=== PATIENT | male | born 1960 | race Caucasian/White ===

== ENCOUNTER 2016-07-21 14:18 | Emergency (ER) | payer MEDICAID, MEDICARE ==
[2016-07-21] MEDS ORDERED: SODIUM CHLORIDE 0.9% 10 ML FLUSH FLUSH PRN (14:35)
[2016-07-21] MEDS ORDERED: Pharmacy Review for Metformin - IV Contrast Given SCH (15:00)
[2016-07-21] MEDS: NS 1,000 ML IV SCH ×2 (15:10→18:00)
--- NOTE | 2016-07-21 15:14 | EDPRACDOC ---
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 PT STATES THAT TODAY HE "JUST STARTED NOT TO FEEL VERY WELL" AND CALLED OUT TO THE NURSES. ON NURSES ARRIVAL, IT WAS STATED THAT PT WAS BLEEDING PROFUSELY AROUND THE BUTTOCK AREA. PT CURRENTLY HYPOTENSIVE, DIAPHORETIC AND PALE, BUT ALERT. Bleeding Duration: Reports: Since Onset Bleeding Description: Reports: Spontaneous Amount of Blood: Reports: Cups <Martha Russell - Last Filed: 07/21/16 16:04> <Laya Weiner - Last Filed: 07/21/16 23:37> <Michael Carbone - Last Filed: 07/22/16 02:23> - General Information Stated Complaint: PENILE BLEEDING Time Seen by Provider: 07/21/16 14:27 Home Medications: Home Medications Albuterol Sulfate [Proair Respiclick] 1 puff INH Q12H PRN 04/14/16 Aspirin (Enteric Coated) [Ecotrin] 81 mg PO DAILY 04/14/16 Atorvastatin Calcium [Lipitor] 40 mg PO DAILY 04/14/16 Baclofen 30 mg PO QID 04/14/16 Calcium Carbonate [Calcium] 500 mg PO TID 04/14/16 Dextrose [Glucose] 4 gm PO DAILY PRN 04/14/16 Diazepam [Valium] 5 mg PO Q8H PRN 04/14/16 Duloxetine HCl [Cymbalta] 20 mg PO BID 04/14/16 Ferrous Sulfate [Iron] 325 mg PO TID 04/14/16 Fluticasone/Vilanterol [Breo Ellipta 100-25 Mcg INH] 1 puff INH DAILY 04/14/16 Gabapentin 600 mg PO BID 04/14/16 Gabapentin [Neurontin] 900 mg PO QHS 04/14/16 Metformin HCl 500 mg PO BID 04/14/16 Metoprolol Tartrate 12.5 mg PO BID 04/14/16 Morphine Sulfate [Ms Contin] 15 mg PO BID 04/14/16 Mv,Minerals/FA/Lycopene/Ginkgo [One Daily Men's 50+ Tablet] 1 tab PO DAILY 04/14 Naphazo HCl/Hpm/Ps 80/Zn Sulf [Clear Eyes Complete Eye Drops] 1 drop OU DAILY PRN 04/14/16 Oxycodone HCl/Acetaminophen [Percocet 5-325 mg Tablet] 1 tab PO Q6H PRN Polyethylene Glycol 3350 [Miralax] 17 gm PO DAILY 04/14/16 Sennosides/Docusate Sodium [Sennosides-Docusate Sodium Tab] 2 tab PO BID Vitamin B Complex 1 tab PO DAILY 04/14/16 Allergies/Adverse Reactions: Allergies Allergy/AdvReac Type Severity Reaction Status Date / Time No Known Allergies Allergy Verified 04/14/16 12:26 ED Past Medical History - History Reviewed Yes Nurses notes reviewed and agree except as marked - Patient Medical History Psychological History: Denies: Depression Surgical History: Reports: Other - Social Medical History Smoking Status: Heavy tobacco smoker (5 or more cigarettes/day or daily pipe/ cigar) <Martha Russell - Last Filed: 07/21/16 16:04> EDM Review of Systems - Review of Systems ROS Negative Except as Marked: Yes All systems reviewed and were negative except as marked ROS Unobtainable: Yes Hx Limited due to age/level of understanding of patient Constitutional: No Symptoms Reported Respiratory: No Symptoms Reported Cardiovascular: No Symptoms Reported Gastrointestinal: No Symptoms Reported Neurological: Weakness Integumentary: Wound <Martha Russell - Last Filed: 07/21/16 16:04> - Physical Exam Last recorded Vital Signs: Oxygen Pulse Oxygen Saturation O2 Device Oxygen Flow Rate Fraction of Inspired Oxygen ( FIO2) <Félix De - Last Filed: 07/21/16 15:49> - Physical Exam Constitutional: Alert, Distress Oriented to: Time, Person, Place Last recorded Vital Signs: Oxygen Pulse Oxygen Saturation O2 Device Oxygen Flow Rate Fraction of Inspired Oxygen ( FIO2) - HEENT Head: Normal Eye Exam: Pale Conjunctiva Neck: Normal, Denies Pain, Midline - Respiratory/Cardiovascular Respiratory: Diminished, Rhonchi, Tachypnea Cardiovascular: Tachycardia - GI Auscultation: Normal Palpation: Normal Tenderness: Non tender - Bladder: Other (NOTED SUPRAPUBIC CATHETER) Male Genitalia: Bilateral: Other (SKIN BREAKDOWN TO PENIS) Scrotum: Bilateral: Other (NOTED SKIN BREAKDOWN AROUND SCROTUM) - Musculoskeletal Back: Other (NOTED SEVERE DC ULCER TO SACRAL AREAS, COVERING ENTIRE BUTTOCK AREA ; RECTUM IS CLOSED SURGICALLY; AREA OOZING BLOOD; DEEP TO POSTERIOR PELVIS) Extremities: Other (RECENT NOTED AKA; ROXANNA STILL PRESENT W/OUT INFECTION) - Integumentary Skin: Normal Lymphatics: Normal - Neurologic Mood Description: Normal Thought: Coherent Perception: Normal <Martha Russell - Last Filed: 07/21/16 16:04> - Physical Exam Last recorded Vital Signs: Last Vital Signs Temp Pulse 86 07/21/16 15:37 Resp 20 07/21/16 15:37 BP 72/50 L 07/21/16 15:37 Pulse Ox 96 07/21/16 15:37 Oxygen Pulse Oxygen Saturation 96 O2 Device Nasal Cannula Oxygen Flow Rate 2 Fraction of Inspired Oxygen ( FIO2) <Laya Weiner - Last Filed: 07/21/16 23:37> - Physical Exam Last recorded Vital Signs: Last Vital Signs Temp 97.5 F 07/22/16 01:28 Pulse 84 07/22/16 01:47 Resp 18 07/22/16 01:47 BP 107/70 07/22/16 01:47 Pulse Ox 96 07/22/16 01:47 Oxygen Pulse Oxygen Saturation 96 O2 Device Nasal Cannula Oxygen Flow Rate 2 Fraction of Inspired Oxygen ( FIO2) <Michael Carbone - Last Filed: 07/22/16 02:23> ED Procedures - Central Line Informed of risks, benefits and alternatives described.: No Indication: Hypotension, No peripheral access Line Procedure: Chlorahexadine, Sterile drapes applied, Sterile dressing applied Equipment used during procedure: Hat and Mask, Sterile Gown, Sterile Gloves Line Lumen: triple (ULTRASOUND GUIDED) Central Line Postion: internal jugular (R) Anesthesia: Lidocaine Line Position approached and secured by standard fashion: sutured, good blood return, position confirmed w/ CXR Complications: none Post Central Line placement CXR: Ordered <Félix De - Last Filed: 07/21/16 15:49> - Results 07/21/16 15:08 07/21/16 15:08 WBC 19.4 xk/uL (3.8-10.8) H 07/21/16 15:08 RBC 3.93 xM/uL (4.70-6.10) L 07/21/16 15:08 Hgb 9.9 g/dL (14.0-18.0) L 07/21/16 15:08 Hct 31.5 % (42-52) L 07/21/16 15:08 MCV 80 fL (80-94) 07/21/16 15:08 MCH 25.1 pg (27-32) L 07/21/16 15:08 MCHC 31.3 g/dl (33-36) L 07/21/16 15:08 RDW 20.3 % (11.5-14.5) H 07/21/16 15:08 Plt Count 348 xk/uL (130-400) 07/21/16 15:08 MPV 8.3 fL (7.4-10.4) 07/21/16 15:08 Neut % (Auto) 82.6 % (45-76) H 07/21/16 15:08 Lymph % (Auto) 10.3 % (17-44) L 07/21/16 15:08 Walton % (Auto) 6.1 % (3-10) 07/21/16 15:08 Eos % (Auto) 0.5 % (0-5) 07/21/16 15:08 Baso % (Auto) 0.5 % (0-2) 07/21/16 15:08 Absolute Neuts (auto) 15.91 xk/uL (1.7-8.2) H 07/21/16 15:08 Absolute Lymphs (auto) 1.94 xk/uL (0.65-4.75) 07/21/16 15:08 Puncture Site Right radial 07/21/16 15:20 pH 7.500 pH UNITS (7.35-7.45) H 07/21/16 15:20 pCO2 45.0 mmHg (35-45) 07/21/16 15:20 pO2 59.0 mmHg (80-100) L 07/21/16 15:20 HCO3 35.1 MMOL/L (22-26) H 07/21/16 15:20 Total CO2 36.5 MMOL/L (23-27) H 07/21/16 15:20 Base Excess 10.5 (+/- 2) H 07/21/16 15:20 FiO2 % 2 lpm 07/21/16 15:20 Specimen Drawn By [facility] 07/21/16 15:20 Crossmatch See Detail 07/21/16 15:08 Lab Results 07/21/16 07/21/16 07/21/16 15:20 15:08 15:08 WBC 19.4 H RBC 3.93 L Hgb 9.9 L Hct 31.5 L MCV 80 MCH 25.1 L MCHC 31.3 L RDW 20.3 H Plt Count 348 MPV 8.3 Neut % (Auto) 82.6 H Lymph % (Auto) 10.3 L Walton % (Auto) 6.1 Eos % (Auto) 0.5 Baso % (Auto) 0.5 Absolute Neuts (auto) 15.91 H Absolute Lymphs (auto) 1.94 Puncture Site Right radial pH 7.500 H pCO2 45.0 pO2 59.0 L HCO3 35.1 H Total CO2 36.5 H Base Excess 10.5 H FiO2 % 2 lpm Specimen Drawn By [facility] Crossmatch See Detail <Félix De - Last Filed: 07/21/16 15:49> - Results 07/21/16 15:08 07/21/16 15:08 Crossmatch See Detail 07/21/16 14:36 Lab Results 07/21/16 14:36 Crossmatch See Detail - EKG EKG #1 EKG Time: 14:41 -: Yes EKG interpreted by me Rate: bpm: 91 [place]: Normal Rhythm: NSR Block: None Hypertrophy: None ST: Normal <Martha Russell - Last Filed: 07/21/16 16:04> - Re-evaluation Re-evaluation 3 Re-evaluation Time: 17:41 LEVOPHED DRIP GOING, HAS HAD 2 L OF NORMAL SALINE. BLOOD PRESSURE HAS BEEN RANGING BETWEEN 87 AND 97 SYSTOLIC. PATIENT IS WARM AND MENTATING ACTUALLY VERY WELL. NO CURRENT BLEEDING FROM HIS WOUND. AT THIS TIME. THE BENEFITS OF TRANSFER TO A HIGHER LEVEL CARE OUTWEIGH ANTICIPATED WRIST DURING TRANSPORT. Re-evaluation 1 Re-evaluation Time: 16:00 (I ASSUMED CARE FROM DR. DE, PATIENT HAS BEEN CENTRAL LINE AND IV FLUIDS PRESSORS ANTIBIOTICS HAVE BEEN STARTED.) RESULTS REVIEWED, FROM TODAY, WELL HIS RECENT DISCHARGE INFO FROM [facility]. AT THIS TIME. IT IS BEST THAT HE IS CARE FOR THE CRITICAL CARE SETTING SINCE [place] IS FAMILIAR WITH THE PATIENT HAS AND HAS PROVIDED OPERATIVE SERVICES WILL RECOMMEND TRANSFER THERE. Re-evaluation 4 Re-evaluation Time: 21:17 No changes in clinical status or new information from previous documentation. Vital Signs: Temp:97.1 F HR: 76 BP: 95/66 RR: 16 Pox: 96%. Continue with current plan. WARM AND WELL PERFUSED. AWAITING BED ASSIGNMENT AT [facility]. PT STILL STABLE FOR TRANSPORT. Re-evaluation 5 Re-evaluation Time: 23:37 No changes in clinical status or new information from previous documentation. Vital Signs: Temp:97.1 F HR: 72 BP: 115/75 RR: 18 Pox: 97%. Continue with current plan. DOING WELL HAS EATEN A [place] AND [place] [facility] STABLE FOR TRANSFER AT THIS TIME. CARE WILL BE ENDORSED TO DR. BRIANDA MATSON TRANSPORTATION TO [place] PENDING AT THIS TIME. - Results 07/21/16 15:08 07/21/16 15:08 WBC 19.4 xk/uL (3.8-10.8) H 07/21/16 15:08 RBC 3.93 xM/uL (4.70-6.10) L 07/21/16 15:08 Hgb 9.9 g/dL (14.0-18.0) L 07/21/16 15:08 Hct 31.5 % (42-52) L 07/21/16 15:08 MCV 80 fL (80-94) 07/21/16 15:08 MCH 25.1 pg (27-32) L 07/21/16 15:08 MCHC 31.3 g/dl (33-36) L 07/21/16 15:08 RDW 20.3 % (11.5-14.5) H 07/21/16 15:08 Plt Count 348 xk/uL (130-400) 07/21/16 15:08 MPV 8.3 fL (7.4-10.4) 07/21/16 15:08 Neut % (Auto) 82.6 % (45-76) H 07/21/16 15:08 Lymph % (Auto) 10.3 % (17-44) L 07/21/16 15:08 Walton % (Auto) 6.1 % (3-10) 07/21/16 15:08 Eos % (Auto) 0.5 % (0-5) 07/21/16 15:08 Baso % (Auto) 0.5 % (0-2) 07/21/16 15:08 Absolute Neuts (auto) 15.91 xk/uL (1.7-8.2) H 07/21/16 15:08 Absolute Lymphs (auto) 1.94 xk/uL (0.65-4.75) 07/21/16 15:08 Puncture Site Right radial 07/21/16 15:20 pH 7.500 pH UNITS (7.35-7.45) H 07/21/16 15:20 pCO2 45.0 mmHg (35-45) 07/21/16 15:20 pO2 59.0 mmHg (80-100) L 07/21/16 15:20 HCO3 35.1 MMOL/L (22-26) H 07/21/16 15:20 Total CO2 36.5 MMOL/L (23-27) H 07/21/16 15:20 Base Excess 10.5 (+/- 2) H 07/21/16 15:20 FiO2 % 2 lpm 07/21/16 15:20 Specimen Drawn By [facility] 07/21/16 15:20 Sodium 136 mEq/L (137-146) L 07/21/16 15:08 Potassium 3.6 mEq/L (3.5-5.1) 07/21/16 15:08 Chloride 96 mEq/L (98-107) L 07/21/16 15:08 Carbon Dioxide 34 mMOL/L (22-33) H 07/21/16 15:08 Anion Gap 10 mEq/L (8-16) 07/21/16 15:08 BUN 10 MG/DL (9-20) 07/21/16 15:08 Creatinine 0.80 MG/DL (0.66-1.25) 07/21/16 15:08 Estimated GFR (MDRD) > 60 mL/min (>=60) 07/21/16 15:08 Glucose 150 MG/DL (70-99) H 07/21/16 15:08 Calculated Osmolality 264 MOs/Kg (270-290) L 07/21/16 15:08 Lactic Acid 3.2 mEq/L (0.7-2.1) H 07/21/16 15:08 Calcium 8.3 MG/DL (8.4-10.2) L 07/21/16 15:08 Corrected Calcium 9.9 MG/DL (8.4-10.2) 07/21/16 15:08 Total Bilirubin 0.5 MG/DL (0.2-1.3) 07/21/16 15:08 AST 23 IU/L (17-59) 07/21/16 15:08 ALT 27 IU/L (21-72) 07/21/16 15:08 Alkaline Phosphatase 112 IU/L (38-126) 07/21/16 15:08 Troponin I < 0.01 ng/mL (<.04) 07/21/16 15:08 Total Protein 6.2 G/DL (6.3-8.2) L 07/21/16 15:08 Albumin 2.4 G/DL (3.5-5.0) L 07/21/16 15:08 Urine Color Martha 07/21/16 15:16 Urine Clarity Cldy 07/21/16 15:16 Urine pH 8.0 (5.0-8.0) 07/21/16 15:16 Ur Specific [place] </=1.005 (1.003-1.035) 07/21/16 15:16 Urine Protein 2+ (NEG/TRACE) H 07/21/16 15:16 Urine Glucose (UA) Neg (NEGATIVE) 07/21/16 15:16 Urine Ketones Neg (NEGATIVE) 07/21/16 15:16 Urine Occult Blood 3+ (NEG/TRACE) H 07/21/16 15:16 Urine Nitrite Neg (NEGATIVE) 07/21/16 15:16 Urine Bilirubin Neg (NEGATIVE) 07/21/16 15:16 Urine Urobilinogen 4 MG/DL (0-1) H 07/21/16 15:16 Ur Leukocyte Esterase 2+ (NEGATIVE) H 07/21/16 15:16 Urine RBC Tntc (0-2) H 07/21/16 15:16 Urine WBC Tntc (0-2) H 07/21/16 15:16 Urine Bacteria 1+ (NEG/FEW) H 07/21/16 15:16 Urine Mucus Sm amt (NEG/OCC) 07/21/16 15:16 Urine Yeast Many (NONE) H 07/21/16 15:16 Blood Type O POSITIVE 07/21/16 15:08 Crossmatch See Detail 07/21/16 15:08 Lab Results 07/21/16 07/21/16 07/21/16 15:20 15:16 15:08 WBC RBC Hgb Hct MCV MCH MCHC RDW Plt Count MPV Neut % (Auto) Lymph % (Auto) [place] % (Auto) Eos % (Auto) Baso % (Auto) Absolute Neuts (auto) Absolute Lymphs (auto) Puncture Site Right radial pH 7.500 H pCO2 45.0 pO2 59.0 L HCO3 35.1 H Total CO2 36.5 H Base Excess 10.5 H FiO2 % 2 lpm Specimen Drawn By [facility] Sodium Potassium Chloride Carbon Dioxide Anion Gap BUN Creatinine Estimated GFR (MDRD) Glucose Calculated Osmolality Lactic Acid 3.2 H Calcium Corrected Calcium Total Bilirubin AST ALT Alkaline Phosphatase Troponin I Total Protein Albumin Urine Color Martha Urine Clarity Cldy Urine pH 8.0 Ur Specific [place] </=1.005 Urine Protein 2+ H Urine Glucose (UA) Neg Urine Ketones Neg Urine Occult Blood 3+ H Urine Nitrite Neg Urine Bilirubin Neg Urine Urobilinogen 4 H Ur Leukocyte Esterase 2+ H Urine RBC Tntc H Urine WBC Tntc H Urine Bacteria 1+ H Urine Mucus Sm amt Urine Yeast Many H Blood Type Crossmatch 07/21/16 07/21/16 07/21/16 15:08 15:08 15:08 WBC 19.4 H RBC 3.93 L Hgb 9.9 L Hct 31.5 L MCV 80 MCH 25.1 L MCHC 31.3 L RDW 20.3 H Plt Count 348 MPV 8.3 Neut % (Auto) 82.6 H Lymph % (Auto) 10.3 L Walton % (Auto) 6.1 Eos % (Auto) 0.5 Baso % (Auto) 0.5 Absolute Neuts (auto) 15.91 H Absolute Lymphs (auto) 1.94 Puncture Site pH pCO2 pO2 HCO3 Total CO2 Base Excess FiO2 % Specimen Drawn By Sodium 136 L Potassium 3.6 Chloride 96 L Carbon Dioxide 34 H Anion Gap 10 BUN 10 Creatinine 0.80 Estimated GFR (MDRD) > 60 Glucose 150 H Calculated Osmolality 264 L Lactic Acid Calcium 8.3 L Corrected Calcium 9.9 Total Bilirubin 0.5 AST 23 ALT 27 Alkaline Phosphatase 112 Troponin I < 0.01 Total Protein 6.2 L Albumin 2.4 L Urine Color Urine Clarity Urine pH Ur Specific [place] Urine Protein Urine Glucose (UA) Urine Ketones Urine Occult Blood Urine Nitrite Urine Bilirubin Urine Urobilinogen Ur Leukocyte Esterase Urine RBC Urine WBC Urine Bacteria Urine Mucus Urine Yeast Blood Type O POSITIVE Crossmatch See Detail - Diagnostic Imaging Abdomen Image interpreted by: Radiologist Patient Name: GILLES AGUILAR Courtesy Copy to: Diagnostic Imaging Report [facility] [address] [address] [phone] Diagnostic Imaging Services Courtesy Copy to: Diagnostic Imaging Report Patient Name: GILLES AGUILAR LOC: ED : 1960 AGE: 55 Order Date:07/21/16 Date of Service:02/27 Report # [id number] Ord Physician: Martha Russell Exam # [id number] Emergency Physician: Laya Weiner MD Exam(s): [id number] CT/CT ABD-PELV W/IV CM CLINICAL DATA: Bleeding wound left Elizabeth, paraplegic, history of colostomy and suprapubic catheterization EXAM: CT ABDOMEN AND PELVIS WITH CONTRAST TECHNIQUE: Multidetector CT imaging of the abdomen and pelvis was performed using the standard protocol following bolus administration of intravenous contrast. COMPARISON: 02/21/2014, 06/30/2013 FINDINGS: Lower chest: Small left pleural effusion. Infiltrate versus atelectasis left lower lobe. Small pericardial effusion. Hepatobiliary: Noncalcified 16 mm gallstone. Noncalcified 14 mm gallstone. Liver is normal. No biliary dilatation. Pancreas: Normal Spleen: Normal Adrenals/Urinary Tract: Stable 13 mm left adrenal nodule. Minimal nodularity right adrenal gland stable. Numerous small renal cysts bilaterally with no perinephric inflammation. Stomach/Bowel: Lateral abdominal wall colostomy on the left. Numerous loops of small bowel extending into the ostomy site. No evidence of obstruction or strangulation. Diverticulosis sigmoid colon without diverticulitis. Vascular/Lymphatic: Atherosclerotic calcification of the aortoiliac vessels. Reproductive: Not visualized Other: Bladder decompressed by suprapubic catheter. Diffuse bladder wall thickening. No ascites. Musculoskeletal: Chronic dystrophic and erosive change of the right femoral head and neck. Left femoral neck chronic fracture significantly displaced and deformed. Inferior left gluteal skin thickening with a soft tissue band that extends from the level of fractured left femur to the dermis with calcification along its course. This was present previously. There is no evidence of subcutaneous abscess. Increased soft tissue thickening right perineum measuring 7 x 4 cm, representing a change from the prior study with. There is some air in this area. IMPRESSION: 1. Small left pleural effusion. Mild left lower lobe infiltrate versus atelectasis. 2. Cholelithiasis 3. Bladder wall thickening diffusely. Cystitis not excluded. 4. Chronic destructive changes of both hips. No significant interval change. 5. Skin thickening left gluteal region. No evidence of subcutaneous abscess. 6. New soft tissue edematous change right perineum with some air in the soft tissues suggesting infection. Electronically Signed By: Brandon Levi M.D. On: 07/21/2016 17:27 Electronically Signed By: Brandon Levi MD Electronically Signed Date/Time: 729 Dictate Date/Time: 07/21/161712 Technologist: Izzy Prasad Transcribed By: Gregory Transcribed Date/Time: 07/21/161726 <Laya Weiner - Last Filed: 07/21/16 23:37> - Results 07/21/16 15:08 07/21/16 15:08 WBC 19.4 xk/uL (3.8-10.8) H 07/21/16 15:08 RBC 3.93 xM/uL (4.70-6.10) L 07/21/16 15:08 Hgb 9.9 g/dL (14.0-18.0) L 07/21/16 15:08 Hct 31.5 % (42-52) L 07/21/16 15:08 MCV 80 fL (80-94) 07/21/16 15:08 MCH 25.1 pg (27-32) L 07/21/16 15:08 MCHC 31.3 g/dl (33-36) L 07/21/16 15:08 RDW 20.3 % (11.5-14.5) H 07/21/16 15:08 Plt Count 348 xk/uL (130-400) 07/21/16 15:08 MPV 8.3 fL (7.4-10.4) 07/21/16 15:08 Neut % (Auto) 82.6 % (45-76) H 07/21/16 15:08 Lymph % (Auto) 10.3 % (17-44) L 07/21/16 15:08 Walton % (Auto) 6.1 % (3-10) 07/21/16 15:08 Eos % (Auto) 0.5 % (0-5) 07/21/16 15:08 Baso % (Auto) 0.5 % (0-2) 07/21/16 15:08 Absolute Neuts (auto) 15.91 xk/uL (1.7-8.2) H 07/21/16 15:08 Absolute Lymphs (auto) 1.94 xk/uL (0.65-4.75) 07/21/16 15:08 PT 13.2 SEC (9.2-11.2) H 07/21/16 15:08 INR 1.3 07/21/16 15:08 APTT 31.7 SEC (22-35) 07/21/16 15:08 Puncture Site Right radial 07/21/16 15:20 pH 7.500 pH UNITS (7.35-7.45) H 07/21/16 15:20 pCO2 45.0 mmHg (35-45) 07/21/16 15:20 pO2 59.0 mmHg (80-100) L 07/21/16 15:20 HCO3 35.1 MMOL/L (22-26) H 07/21/16 15:20 Total CO2 36.5 MMOL/L (23-27) H 07/21/16 15:20 Base Excess 10.5 (+/- 2) H 07/21/16 15:20 FiO2 % 2 lpm 07/21/16 15:20 Specimen Drawn By [facility] 07/21/16 15:20 Sodium 136 mEq/L (137-146) L 07/21/16 15:08 Potassium 3.6 mEq/L (3.5-5.1) 07/21/16 15:08 Chloride 96 mEq/L (98-107) L 07/21/16 15:08 Carbon Dioxide 34 mMOL/L (22-33) H 07/21/16 15:08 Anion Gap 10 mEq/L (8-16) 07/21/16 15:08 BUN 10 MG/DL (9-20) 07/21/16 15:08 Creatinine 0.80 MG/DL (0.66-1.25) 07/21/16 15:08 Estimated GFR (MDRD) > 60 mL/min (>=60) 07/21/16 15:08 Glucose 150 MG/DL (70-99) H 07/21/16 15:08 Calculated Osmolality 264 MOs/Kg (270-290) L 07/21/16 15:08 Lactic Acid 1.9 mEq/L (0.7-2.1) 07/21/16 20:30 Calcium 8.3 MG/DL (8.4-10.2) L 07/21/16 15:08 Corrected Calcium 9.9 MG/DL (8.4-10.2) 07/21/16 15:08 Total Bilirubin 0.5 MG/DL (0.2-1.3) 07/21/16 15:08 AST 23 IU/L (17-59) 07/21/16 15:08 ALT 27 IU/L (21-72) 07/21/16 15:08 Alkaline Phosphatase 112 IU/L (38-126) 07/21/16 15:08 Troponin I 0.01 ng/mL (<.04) 07/21/16 20:30 Hpn-N-Iokuvlhiimv Pept 1180 pg/mL (0-900) H 07/21/16 15:08 Total Protein 6.2 G/DL (6.3-8.2) L 07/21/16 15:08 Albumin 2.4 G/DL (3.5-5.0) L 07/21/16 15:08 Urine Color Martha 07/21/16 17:48 Urine Clarity Clear 07/21/16 17:48 Urine pH 6.0 (5.0-8.0) 07/21/16 17:48 Ur Specific [place] </=1.005 (1.003-1.035) 07/21/16 17:48 Urine Protein 1+ (NEG/TRACE) H 07/21/16 17:48 Urine Glucose (UA) Neg (NEGATIVE) 07/21/16 17:48 Urine Ketones Neg (NEGATIVE) 07/21/16 17:48 Urine Occult Blood 2+ (NEG/TRACE) H 07/21/16 17:48 Urine Nitrite Neg (NEGATIVE) 07/21/16 17:48 Urine Bilirubin Neg (NEGATIVE) 07/21/16 17:48 Urine Urobilinogen <2.0 MG/DL (0-1) 07/21/16 17:48 Ur Leukocyte Esterase Trace (NEGATIVE) H 07/21/16 17:48 Urine RBC 20-30 (0-2) H 07/21/16 17:48 Urine WBC 10-20 (0-2) H 07/21/16 17:48 Ur Epithelial Cells Occ 07/21/16 17:48 Urine Bacteria Few (NEG/FEW) 07/21/16 17:48 Urine Mucus Sm amt (NEG/OCC) 07/21/16 17:48 Urine Yeast Mod (NONE) H 07/21/16 17:48 Blood Type O POSITIVE 07/21/16 15:08 Antibody Screen Negative 07/21/16 15:08 Crossmatch See Detail 07/21/16 15:08 Lab Results 07/21/16 07/21/16 07/21/16 20:30 20:30 18:08 WBC RBC Hgb Hct MCV MCH MCHC RDW Plt Count MPV Neut % (Auto) Lymph % (Auto) [place] % (Auto) Eos % (Auto) Baso % (Auto) Absolute Neuts (auto) Absolute Lymphs (auto) PT INR APTT Puncture Site pH pCO2 pO2 HCO3 Total CO2 Base Excess FiO2 % Specimen Drawn By Sodium Potassium Chloride Carbon Dioxide Anion Gap BUN Creatinine Estimated GFR (MDRD) Glucose Calculated Osmolality Lactic Acid 1.9 Calcium Corrected Calcium Total Bilirubin AST ALT Alkaline Phosphatase Troponin I 0.01 < 0.01 Fbp-G-[id number] Pept Total Protein Albumin Urine Color Urine Clarity Urine pH Ur Specific [place] Urine Protein Urine Glucose (UA) Urine Ketones Urine Occult Blood Urine Nitrite Urine Bilirubin Urine Urobilinogen Ur Leukocyte Esterase Urine RBC Urine WBC Ur Epithelial Cells Urine Bacteria Urine Mucus Urine Yeast Blood Type Antibody Screen Crossmatch 07/21/16 07/21/16 07/21/16 17:48 15:20 15:16 WBC RBC Hgb Hct MCV MCH MCHC RDW Plt Count MPV Neut % (Auto) Lymph % (Auto) [place] % (Auto) Eos % (Auto) Baso % (Auto) Absolute Neuts (auto) Absolute Lymphs (auto) PT INR APTT Puncture Site Right radial pH 7.500 H pCO2 45.0 pO2 59.0 L HCO3 35.1 H Total CO2 36.5 H Base Excess 10.5 H FiO2 % 2 lpm Specimen Drawn By Ingsh Sodium Potassium Chloride Carbon Dioxide Anion Gap BUN Creatinine Estimated GFR (MDRD) Glucose Calculated Osmolality Lactic Acid Calcium Corrected Calcium Total Bilirubin AST ALT Alkaline Phosphatase Troponin I [id number] Pept Total Protein Albumin Urine Color Martha Martha Urine Clarity Clear Cldy Urine pH 6.0 8.0 Ur Specific [place] </=1.005 </=1.005 Urine Protein 1+ H 2+ H Urine Glucose (UA) Neg Neg Urine Ketones Neg Neg Urine Occult Blood 2+ H 3+ H Urine Nitrite Neg Neg Urine Bilirubin Neg Neg Urine Urobilinogen <2.0 4 H Ur Leukocyte Esterase Trace H 2+ H Urine RBC 20-30 H Tntc H Urine WBC 10-20 H Tntc H Ur Epithelial Cells Occ Urine Bacteria Few 1+ H Urine Mucus Sm amt Sm amt Urine Yeast Mod H Many H Blood Type Antibody Screen Crossmatch 07/21/16 07/21/16 07/21/16 15:08 15:08 15:08 WBC RBC Hgb Hct MCV MCH MCHC RDW Plt Count MPV Neut % (Auto) Lymph % (Auto) [place] % (Auto) Eos % (Auto) Baso % (Auto) Absolute Neuts (auto) Absolute Lymphs (auto) PT INR APTT Puncture Site pH pCO2 pO2 HCO3 Total CO2 Base Excess FiO2 % Specimen Drawn By Sodium Potassium Chloride Carbon Dioxide Anion Gap BUN Creatinine Estimated GFR (MDRD) Glucose Calculated Osmolality Lactic Acid 3.2 H Calcium Corrected Calcium Total Bilirubin AST ALT Alkaline Phosphatase Troponin I [id number]-Dohrlfpeans Pept 1180 H Total Protein Albumin Urine Color Urine Clarity Urine pH Ur Specific [place] Urine Protein Urine Glucose (UA) Urine Ketones Urine Occult Blood Urine Nitrite Urine Bilirubin Urine Urobilinogen Ur Leukocyte Esterase Urine RBC Urine WBC Ur Epithelial Cells Urine Bacteria Urine Mucus Urine Yeast Blood Type O POSITIVE Antibody Screen Negative Crossmatch See Detail 07/21/16 07/21/16 07/21/16 15:08 15:08 15:08 WBC 19.4 H RBC 3.93 L Hgb 9.9 L Hct 31.5 L MCV 80 MCH 25.1 L MCHC 31.3 L RDW 20.3 H Plt Count 348 MPV 8.3 Neut % (Auto) 82.6 H Lymph % (Auto) 10.3 L [place] % (Auto) 6.1 Eos % (Auto) 0.5 Baso % (Auto) 0.5 Absolute Neuts (auto) 15.91 H Absolute Lymphs (auto) 1.94 PT 13.2 H INR 1.3 APTT 31.7 Puncture Site pH pCO2 pO2 HCO3 Total CO2 Base Excess FiO2 % Specimen Drawn By Sodium 136 L Potassium 3.6 Chloride 96 L Carbon Dioxide 34 H Anion Gap 10 BUN 10 Creatinine 0.80 Estimated GFR (MDRD) > 60 Glucose 150 H Calculated Osmolality 264 L Lactic Acid Calcium 8.3 L Corrected Calcium 9.9 Total Bilirubin 0.5 AST 23 ALT 27 Alkaline Phosphatase 112 Troponin I < 0.01 [id number]-Vcnryfphmku Pept Total Protein 6.2 L Albumin 2.4 L Urine Color Urine Clarity Urine pH Ur Specific [place] Urine Protein Urine Glucose (UA) Urine Ketones Urine Occult Blood Urine Nitrite Urine Bilirubin Urine Urobilinogen Ur Leukocyte Esterase Urine RBC Urine WBC Ur Epithelial Cells Urine Bacteria Urine Mucus Urine Yeast Blood Type Antibody Screen Crossmatch - Additional Information MD NOTE PT STABLE FOR TRANSFER AT THIS TIME <Michael Carbone - Last Filed: 07/22/16 02:23> ED Critical Care Note - Critical Care Note Total Time (mins): 30 Comments: Due to the presence of and / or the risk of deterioration, my attendance to this patient required critical care time, including assessment/reassessment, documentation, ordering and interpreting ancillary studies, discussion with ED staff and consultants,patient and family, and excludes time spent on separately billable procedures. <Félix De - Last Filed: 07/21/16 15:49> - Departure Yes I personally saw and evaluated the patient. Disposition: Admit IP To This Hospital <Félix De - Last Filed: 07/21/16 15:49> <Martha Russell - Last Filed: 07/21/16 16:04> - Departure Disposition: Trans. to Other Hospital ([facility]) Decision to Transfer Time: 16:26 - Physician Consulted PCC Time Called: 16:09 Provider Called: Josh Loving Time Alteration Worker Returned Call: 16:26 (ACCEPTS IN TRANSFER PENDING TRANSFER OUT OF ICU. 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
[2016-07-21 15:20] LABS: AUTOMATED BASOPHIL 0.5 % (0-2); AUTOMATED EOSINOPHIL 0.5 % (0-5); AUTOMATED LYMPH 10.3 % (17-44); AUTOMATED MONOCYTE 6.1 % (3-10); AUTOMATED NEUTROPHIL 82.6 % (45-76); MPV 8.3 fL (7.4-10.4)
[2016-07-21 15:29] LABS: ALLEN'S TEST PASS; BEb 10.5 (+/- 2); TCO2 36.5 MMOL/L (23-27)
[2016-07-21 15:30] LABS: ABG Draw Site Right Radial; ABG Draw Tech INGSH
--- NOTE | 2016-07-21 15:32 | DIRPT ---
CLINICAL DATA: GI bleed, low blood pressure EXAM: PORTABLE CHEST 1 VIEW COMPARISON: 04/14/2016 FINDINGS: Mild cardiac enlargement. This is stable. The patient is rotated and the study is therefore limited. There appears to be retrocardiac left lower lobe opacity that was not present previously. There is also hazy density over the right mid lung zone which may largely be due to rotation and overlying soft tissues. IMPRESSION: Limited study given suboptimal patient positioning. However, there does appear to be retrocardiac left lower lobe opacity suggesting consolidation. This could represent pneumonia or pneumonitis. Hazy right mid lung zone density likely related to technical factors. Electronically Signed By: Brandon Levi M.D. On: 07/21/2016 15:30
[2016-07-21 15:34] LABS: BLOOD UREA NITROGEN 10 MG/DL (9-20); CALC CORRECTED 9.9 MG/DL (8.4-10.2); CALCIUM 8.3 MG/DL (8.4-10.2); CALCULATED OSMOLALITY 264 MOs/Kg (270-290); CHLORIDE 96 mEq/L (98-107); GLUCOSE 150 MG/DL (70-99); SODIUM LEVEL 136 mEq/L (137-146); TOTAL PROTEIN 6.2 G/DL (6.3-8.2)
[2016-07-21 15:35] LABS: PARTIAL THROMB. TIME 31.7 SEC (22-35); PT-INR 1.3
[2016-07-21] MEDS ORDERED: PIPERACILLIN AND TAZOBACTAM 4.5 GM in D5W 100 ML IV ONE (15:50)
[2016-07-21] MEDS ORDERED: Levofloxacin 750 mg/150 ml D5W 750 MG/150 ML RTU IV ONE ×2 (15:50→18:00)
[2016-07-21 15:58] VITALS: BMI 22.1
[2016-07-21 15:58] LABS: LEUKOCYTES/URINE 2+ (NEGATIVE); NITRITE/URINE NEG (NEGATIVE); RBC/URINE TNTC (0-2); URINE OCCULT BLOOD 3+ (NEG/TRACE); WBC/URINE TNTC (0-2)
[2016-07-21] MEDS ORDERED: Norepinephrine in D5W infusion 8,000 MCG/250 ML BAG IV SCH (16:00)
[2016-07-21] MEDS ORDERED: NS 1,000 ML IV ONE ×2 (16:07→17:43)
--- NOTE | 2016-07-21 17:29 | DIRPT ---
CLINICAL DATA: Bleeding wound left Elizabeth, paraplegic, history of colostomy and suprapubic catheterization EXAM: CT ABDOMEN AND PELVIS WITH CONTRAST TECHNIQUE: Multidetector CT imaging of the abdomen and pelvis was performed using the standard protocol following bolus administration of intravenous contrast. COMPARISON: 02/21/2014, 06/30/2013 FINDINGS: Lower chest: Small left pleural effusion. Infiltrate versus atelectasis left lower lobe. Small pericardial effusion. Hepatobiliary: Noncalcified 16 mm gallstone. Noncalcified 14 mm gallstone. Liver is normal. No biliary dilatation. Pancreas: Normal Spleen: Normal Adrenals/Urinary Tract: Stable 13 mm left adrenal nodule. Minimal nodularity right adrenal gland stable. Numerous small renal cysts bilaterally with no perinephric inflammation. Stomach/Bowel: Lateral abdominal wall colostomy on the left. Numerous loops of small bowel extending into the ostomy site. No evidence of obstruction or strangulation. Diverticulosis sigmoid colon without diverticulitis. Vascular/Lymphatic: Atherosclerotic calcification of the aortoiliac vessels. Reproductive: Not visualized Other: Bladder decompressed by suprapubic catheter. Diffuse bladder wall thickening. No ascites. Musculoskeletal: Chronic dystrophic and erosive change of the right femoral head and neck. Left femoral neck chronic fracture significantly displaced and deformed. Inferior left gluteal skin thickening with a soft tissue band that extends from the level of fractured left femur to the dermis with calcification along its course. This was present previously. There is no evidence of subcutaneous abscess. Increased soft tissue thickening right perineum measuring 7 x 4 cm, representing a change from the prior study with. There is some air in this area. IMPRESSION: 1. Small left pleural effusion. Mild left lower lobe infiltrate versus atelectasis. 2. Cholelithiasis 3. Bladder wall thickening diffusely. Cystitis not excluded. 4. Chronic destructive changes of both hips. No significant interval change. 5. Skin thickening left gluteal region. No evidence of subcutaneous abscess. 6. New soft tissue edematous change right perineum with some air in the soft tissues suggesting infection. Electronically Signed By: Brandon Levi M.D. On: 07/21/2016 17:27
[2016-07-21 18:03] LABS: LEUKOCYTES/URINE TRACE (NEGATIVE); NITRITE/URINE NEG (NEGATIVE); RBC/URINE 20-30 (0-2); URINE OCCULT BLOOD 2+ (NEG/TRACE)
[2016-07-22 01:29] VITALS: TEMP 97.5
[2016-07-22 02:37] VITALS: BP 113/70; PULSE 84
== END 2016-07-22 02:25 | disposition short-term general hospital (02) ==
LOC: ED 14:18
DX: A41.9 Sepsis, unspecified organism (principal); R65.21 Severe sepsis with septic shock; J18.9 Pneumonia, unspecified organism; Y95 Nosocomial condition; L89.154 Pressure ulcer of sacral region, stage 4; T83.511A Infection and inflammatory reaction due to indwelling urethral catheter, initial encounter; N39.0 Urinary tract infection, site not specified; Y84.6 Urinary catheterization as the cause of abnormal reaction of the patient, or of later complication, without mention of misadventure at the time of the procedure; L03.315 Cellulitis of perineum; Z89.619 Acquired absence of unspecified leg above knee; F17.200 Nicotine dependence, unspecified, uncomplicated
CPT/HCPCS: 36415; 36430; 36556; 36600; 71010; 74177; 80053; 81001; 82803; 83605; 83880; 84484; 85025; 85610; 85730; 86850; 86900; 86901; 86920; 87040; 87077; 87086; 87186; 93005; 96361; 96365; 96366; 99285; A9698; J1956; J2543; J3490; J7060; P9016